=== PATIENT | female | born 1960 ===

== ENCOUNTER 2024-06-17 13:18 | Emergency (ER) | payer OTHER ==
[~2024-06-17] VITALS: Ht 160 cm; Wt 56.8 kg
[2024-06-17 13:31] VITALS: BP 155/100; PULSE 89; RESP 18; TEMP 97.6; O2SAT 98
== END 2024-06-17 21:21 | disposition left against medical advice (07) ==
LOC: ER 13:19
DX: R31.9 Hematuria, unspecified (principal); Z53.21 Procedure and treatment not carried out due to patient leaving prior to being seen by health care provider